=== PATIENT | male | born 1975 | race Caucasian/White ===

== ENCOUNTER → 2018-11-16 | Outpatient (CLI) | payer OTHER ==
[~2018-11-16] MED LIST: CARV6.25 PO; CEPH500 PO; CITA20 PO; OXYACE5T PO; Testostero100 MG/1 M IM
== END | disposition home or self-care (01) ==
LOC: OLS 16:00 → LAB SHORT 16:00 → LAB FUT 11-17 17:40
DX: R10.9 Unspecified abdominal pain (principal)
CPT/HCPCS: 87338

== ENCOUNTER → 2019-02-03 | Outpatient (CLI) | payer OTHER ==
[2019-02-03 10:34] LABS: BASOPHILS ABSOLUTE AUTO 0.03 K/mm3 (0.00-0.23); BASOPHILS PERCENT AUTO 0 % (0-2); EOSINOPHILS ABSOLUTE AUTO 0.06 K/mm3 (0.00-0.68); EOSINOPHILS PERCENT AUTO 1 % (0-6); Hematocrit 47.1 % (37.0-53.0); IMMATURE GRAN ABSOLUTE AUTO 0.02 K/mm3 (0.00-0.10); IMMATURE GRAN PERCENT AUTO 0 % (0-1); LYMPHOCYTES ABSOLUTE AUTO 1.68 K/mm3 (0.84-5.20); LYMPHOCYTES PERCENT AUTO 23 % (21-46); MONOCYTES ABSOLUTE AUTO 0.55 K/mm3 (0.16-1.47); MONOCYTES PERCENT AUTO 8 % (4-13); Mean Corpuscular HGB 34.1 pg (26.0-34.0); Mean Corpuscular HGB Conc 36.1 g/dL (31.5-36.5); Mean Corpuscular Volume 94 fL (80-100); Mean Platelet Volume 9.2 fL (9.1-12.4); NEUTROPHILS ABSOLUTE AUTO 4.89 K/mm3 (1.96-9.15); NEUTROPHILS PERCENT AUTO 68 % (41-73); Platelet Count 315 K/mm3 (150-400); RDW Coefficient Variation 12.1 % (11.7-14.2); RDW Standard Deviation 41.7 fL (35.1-46.3); Red Blood Cell Count 4.99 M/mm3 (4.30-5.90); White Blood Cell Count 7.23 K/mm3 (4.00-11.30)
[2019-02-03 10:45] LABS: Alanine Aminotransfer (ALT/SGP 46 U/L (12-78); Albumin, Blood 3.8 g/dL (3.4-5.0); Alk Phos 56 U/L (40-126); Anion Gap 12 mmol/L (6-16); Aspartate Aminotrans (AST/SGOT 24 U/L (12-37); Bilirubin, Total 0.6 mg/dL (0.1-1.0); Blood Urea Nitrogen 15 mg/dL (8-24); Bun/Creatinine Ratio 13.4 (12.0-20.0); CO2, Blood 26 mmol/L (21-32); Calcium, Blood 8.8 mg/dL (8.5-10.1); Chloride, Blood 103 mmol/L (98-108); Creatinine, Blood 1.12 mg/dL (0.60-1.20); Globulin, Blood 3.9 g/dL (2.2-4.0); Glomerular Filtration Rate >60 (60-); Glucose, Blood 95 mg/dL (70-99); Potassium, Blood 4.2 mmol/L (3.5-5.5); Sodium, Blood 141 mmol/L (136-145); Total Protein, Blood 7.7 g/dL (6.4-8.2)
== END | disposition home or self-care (01) ==
LOC: LAB SHORT 10:30 → LAB EV 10:30
PROVIDERS: Physician Assistant
DX: R10.32 Left lower quadrant pain (principal)
CPT/HCPCS: 80053; 83690; 85025

== ENCOUNTER 2019-04-20 09:58 | Day surgery (SDC) | payer OTHER ==
[~2019-04-20] VITALS: Ht 177.8 cm; Wt 110.0 kg
[2019-04-20] MEDS ORDERED: CAND4 (10:23)
[2019-04-20] MEDS ORDERED: Azor 10-20 MG1 EACH (10:23)
== END 2019-04-20 12:20 | disposition home or self-care (01) ==
LOC: ORSCSDS 09:58
PROVIDERS: Internal Medicine Gastroenterology
PROC: 0DBN8ZX Excision of Sigmoid Colon, Via Natural or Artificial Opening Endoscopic, Diagnostic (ICD-10-PCS; principal; 2019-04-20 11:15)
PROC: 0DBE8ZX Excision of Large Intestine, Via Natural or Artificial Opening Endoscopic, Diagnostic (ICD-10-PCS; principal; 2019-04-20 11:15)
DX: K52.9 Noninfective gastroenteritis and colitis, unspecified (principal); R19.7 Diarrhea, unspecified; K63.5 Polyp of colon; I10 Essential (primary) hypertension; G47.33 Obstructive sleep apnea (adult) (pediatric); Z79.899 Other long term (current) drug therapy; E66.9 Obesity, unspecified; Z68.34 Body mass index [BMI] 34.0-34.9, adult
CPT/HCPCS: 88305; J2250; J2704; J7120

== ENCOUNTER → 2022-09-01 | Outpatient (CLI) | payer OTHER ==
[~2022-09-01] MED LIST changes: +ALLO300; +AMLO5; +Azor 10-20 MG1 EACH; +CAND32; +CAND4; +CITA20; +COLCHICINE0.6 MG; +Depo-Testos200 MG/ML; +Flonase 0.05% N16 GM; +HYDPAM25; +Indomethacin25 MG; +Lopressor 50 mg50 MG PO; +OMEP20ER; +REVATIO20 MG
[2022-09-03 01:16] LABS: Adenovirus F 40/41 Not Detected (NOT DETECT); Astrovirus Not Detected (NOT DETECT); Campylobacter Sp Not Detected (NOT DETECT); Cryptosporidium Not Detected (NOT DETECT); Cyclospora Cayetanensis Not Detected (NOT DETECT); E. Coli O157 Not Detected (NOT DETECT); Entamoeba Histolytica Not Detected (NOT DETECT); Enteroaggregative E. coli-EAEC Not Detected (NOT DETECT); Enteropathogenic E. coli-EPEC Not Detected (NOT DETECT); Enterotoxigenic E. coli-ETEC Not Detected (NOT DETECT); Giardia Lamblia Not Detected (NOT DETECT); Plesiomonas Shigelloides Not Detected (NOT DETECT); Salmonella Sp Not Detected (NOT DETECT); Shiga Toxin-prod E. coli-STEC Not Detected (NOT DETECT); Shigella/Enteroin E. coli-EIEC Not Detected (NOT DETECT); Vibrio Cholerae Not Detected (NOT DETECT); Vibrio Sp Not Detected (NOT DETECT); Yersinia Enterocolitica Not Detected (NOT DETECT)
[2022-09-03 01:17] LABS: Norovirus GI/GII Not Detected (NOT DETECT); Rotavirus A Not Detected (NOT DETECT); Sapovirus Not Detected (NOT DETECT)
== END ==
LOC: LAB SHORT 17:43 → LAB 17:43 → LAB FUT 08-27 17:15
PROVIDERS: Family Medicine
DX: R19.7 Diarrhea, unspecified (principal); R79.9 Abnormal finding of blood chemistry, unspecified
CPT/HCPCS: 87507

== ENCOUNTER 2023-12-12 12:45 | Emergency (ER) | payer BC ==
[~2023-12-12] VITALS: Ht 177.8 cm; Wt 100.7 kg
[2023-12-12 13:29] VITALS: BP 143/95
[2023-12-12] MEDS ORDERED: Tetracaine HCl/Pf 0.5% Opth Soln 4 ml XX ONE (13:30)
[2023-12-12] MEDS ORDERED: Fluorescein Sod 1MG Opth Strips LEFTEYE ONE (14:55)
== END 2023-12-12 15:39 | disposition home or self-care (01) ==
LOC: ER 12:45
DX: H53.8 Other visual disturbances (principal); K21.9 Gastro-esophageal reflux disease without esophagitis; I10 Essential (primary) hypertension; Z87.891 Personal history of nicotine dependence; Z79.899 Other long term (current) drug therapy; Z88.0 Allergy status to penicillin
CPT/HCPCS: 70450; 99284-25; A9270

== ENCOUNTER 2024-12-04 11:34 | Day surgery (SDC) | payer OTHER ==
[~2024-12-04] VITALS: Ht 177.8 cm; Wt 97.9 kg
[~2024-12-04 11:34] MED LIST changes: +EPINEPhrine HCl 1 MG / ML 30ML Vial ONE; +Tranexamic Acid 100 ML IV ONE
[2024-12-04] MEDS ORDERED: Carvedilol12.5 MG PO (12:40)
[2024-12-04] MEDS ORDERED: Midazolam HCl 1MG / ML 2ML Vial ONE (12:44)
[2024-12-04] MEDS ORDERED: FentaNYL Citrate 50 MCG/ML 2 ML Injection ONE (12:44)
[2024-12-04] MEDS ORDERED: Rocuronium Bromide 10 MG/ML 5ML Injection IV ONE (12:46)
[2024-12-04] MEDS ORDERED: Ondansetron HCl 2 MG / ML 2ML Vial ONE (12:54)
[2024-12-04] MEDS ORDERED: Dexamethasone Sod Phos 10 MG/ML 1ML VIAL ONE (12:54)
[2024-12-04] MEDS ORDERED: Lidocaine 1%-Epineph 1:200000 30 ML SDV XX ONE (13:05)
[2024-12-04] MEDS ORDERED: Phenylephrine HCl 100 MCG/ML-NS 10MLSYR (1MG/10ML) ONE (13:07)
--- NOTE | 2024-12-04 13:07 | NUR ---
12/04/24 1307 Marina Cheatham 1GM TXA IVPB GIVEN AT 1250. 30ML OF EPI 1MG/ML USED TO SOAK PLEDGETTS DURING CASE.
[2024-12-04] MEDS ORDERED: Sugammadex Sodium 200 MG/2ML SDV (100 MG/ML) ONE (13:36)
[2024-12-04 14:19] VITALS: BP 141/88
--- NOTE | 2024-12-04 15:17 | NUR ---
12/04/24 1517 Maura Zaldivar PT PLEASANT AND COOPERATIVE WITH CARE PROVIDED. PT AT TOLERABLE LEVEL, COMFORTABLE BEFORE LEAVING FACILITY. PT RECIEVED AN ORAL PAIN PILL. ALL QUESTIONS ANSWERED, CONCERNS ADDRESSED. ' PT ASSISTED VIA WC TO PRIVATE VEHICLE, PT'S DAUGHTER IS HIS RIDE BACK HOME AFTER SURGERY.
== END 2024-12-04 15:10 | disposition home or self-care (01) ==
LOC: ORSCSDS 11:34
PROVIDERS: Otolaryngology
PROC: 09SL0ZZ Reposition Nasal Turbinate, Open Approach (ICD-10-PCS; principal; 2024-12-04 13:15)
PROC: 09BM0ZZ Excision of Nasal Septum, Open Approach (ICD-10-PCS; principal; 2024-12-04 13:15)
DX: J34.2 Deviated nasal septum (principal); J34.3 Hypertrophy of nasal turbinates; I10 Essential (primary) hypertension; G47.33 Obstructive sleep apnea (adult) (pediatric); E66.9 Obesity, unspecified; Z68.31 Body mass index [BMI] 31.0-31.9, adult; Z79.899 Other long term (current) drug therapy; Z79.85 Long-term (current) use of injectable non-insulin antidiabetic drugs; Z87.891 Personal history of nicotine dependence
CPT/HCPCS: A9270; J0165; J1100; J2250; J2371; J2405; J2704; J3010; J7120